=== PATIENT | male | born 1985 | race Caucasian/White ===

== ENCOUNTER 2019-04-13 14:59 | Day surgery (SDC) | payer MEDICAID ==
[2019-04-13] MEDS ORDERED: Lidocaine 1% 30 ML SDV ONE (15:12)
[2019-04-13] MEDS ORDERED: Sodium Chloride 0.9% 1,000 ML IV ONE (15:15)
[2019-04-13] MEDS ORDERED: Ertapenem 1 GM in Sodium Chloride 0.9% 100 ML IV ONE (15:22)
--- NOTE | 2019-04-13 15:35 | PCM.PREANE ---
Preanesthetic Assessment - Procedure Proposed Procedure: lap appy - Anesthesia/Transfusion/Family Hx Anesthesia History: No Prior Anesthesia Family History of Anesthesia Reaction: No Transfusion History: No Prior Transfusion(s) - Review of Systems General: No Symptoms Pulmonary: No Symptoms Cardiovascular: No Symptoms Gastrointestinal: Abdominal Pain (pain last cori 6-7), Vomiting (last pm) Neurological: No Symptoms Other: Reports: None, Diabetes (pre in past- started losing weight) - Physical Assessment NPO Status Date: 04/12/19 NPO Status Time: 18:00 O2 Sat by Pulse Oximetry: 100 Respiratory Rate: 20 Vital Signs: Last Vital Signs Temp 96.6 F 04/13/19 15:17 Pulse 113 H 04/13/19 15:17 Resp 20 04/13/19 15:17 BP 158/92 H 04/13/19 15:17 Pulse Ox 100 04/13/19 15:17 Height: 5 ft 10 in Weight: 129.501 kg ASA Class: 2E Mental Status: Alert & Oriented x3 Airway Class: Mallampati = 1 Dentition: Reports: Normal Dentition Thyro-Mental Finger Breadths: 3 (black tongue) Mouth Opening Finger Breadths: 3 ROM/Head Extension: Full Lungs: Clear to Auscultation, Normal Respiratory Effort Cardiovascular: Regular Rate, Regular Rhythm - Imaging/EKG Impressions: had EKG a few months ago- he said everything was fine. - Allergies Allergies/Adverse Reactions: Allergies Allergy/AdvReac Type Severity Reaction Status Date / Time No Known Allergies Allergy Verified 04/13/19 15:09 - Blood Blood Available: No - Acknowledgements Anesthesia Type Planned: General Anesthesia Pt an Appropriate Candidate for the Planned Anesthesia: Yes Alternatives and Risks of Anesthesia Discussed w Pt/Guardian: Yes Pt/Guardian Understands and Agrees with Anesthesia Plan: Yes PreAnesthesia Questionnaire Cardiovascular History: Reports: Hypertension Respiratory History: Reports: None Gastrointestinal History: Reports: None Endocrine/Metabolic History: Reports: Obesity/BMI 30+ Oncologic (Cancer) History: Reports: None Dermatologic History: Reports: Other (See Below) (rosea on face) - History Comment History Comment: hydrochlorathiazide and lisinopril home meds - SUBSTANCE USE Smoking Status *Q: Never Smoker Tobacco Use Within Last Twelve Months: No Second Hand Smoke Exposure: No Days Per Week of Alcohol Use: 0 Recreational Drug Use History: No - HOME MEDS Home Medications: Home Meds Lisinopril 40 mg PO DAILY 04/13/19 [History] - CURRENT (IN HOUSE) MEDS Current Meds: Current Medications Ertapenem 1 gm/ Sodium (Chloride) 100 mls @ 200 mls/hr IV ONETIME ONE Stop: 04/13/19 15:51 Discontinued Medications Lidocaine HCl (Xylocaine-Mpf 1%) Confirm Administered Dose 30 ml .ROUTE .STK- MED ONE Stop: 04/13/19 15:13
[2019-04-13] MEDS ORDERED: Propofol 200 MG/20 ML SDV ONE (15:52)
[2019-04-13] MEDS ORDERED: Lidocaine 1% 4 ML ONE (15:52)
[2019-04-13] MEDS ORDERED: Ondansetron 4 MG/2 ML SDV ONE (15:52)
[2019-04-13] MEDS ORDERED: fentaNYL 250 MCG/5 ML SDV ONE (15:52)
[2019-04-13] MEDS ORDERED: Succinylcholine/Normal Saline 100 MG/5 ML Syringe ONE (15:52)
[2019-04-13] MEDS ORDERED: Rocuronium 50 MG/5 ML Vial ONE (15:52)
[2019-04-13] MEDS ORDERED: Midazolam 1 MG/ML 2 ML SDV ONE (15:52)
[2019-04-13] MEDS ORDERED: HYDROmorphone 0.5 MG/0.5 ML Syringe ONE (15:53)
[2019-04-13] MEDS ORDERED: Lactated Ringers 1,000 ML ONE ×2 (16:12→16:39)
[2019-04-13] MEDS ORDERED: Neostigmine Methylsulfate 1 MG/ML 5 ML Syringe ONE (16:23)
[2019-04-13] MEDS ORDERED: fentaNYL 100 MCG/2 ML SDV IVPUSH PRN (17:17)
[2019-04-13] MEDS ORDERED: Ondansetron 4 MG/2 ML SDV IVPUSH PRN (17:17)
[2019-04-13] MEDS ORDERED: HYDROmorphone 0.5 MG/0.5 ML Syringe IVPUSH PRN (17:17)
--- NOTE | 2019-04-13 17:18 | PCM.POSTAN ---
POST ANESTHESIA ASSESSMENT - MENTAL STATUS Mental Status: Alert, Oriented - VITAL SIGNS Pulse Rate: 94 SaO2: 94 Resp Rate: 18 Blood Pressure: 113/59 Temperature: 98.4 F - RESPIRATORY Respiratory Status: Respiratory Rate WNL, Airway Patent, O2 Saturation Stable - CARDIOVASCULAR CV Status: Pulse Rate WNL, Blood Pressure Stable - GASTROINTESTINAL GI Status: No Symptoms - PAIN Pain Score: 2 - POST OP HYDRATION Hydration Status: Adequate & Stable
--- NOTE | 2019-04-13 17:38 | PCM48HPAN ---
Post Anesthesia Note - EVALUATION WITHIN 48HRS OF ANESTHETIC Vital Signs in Normal Range: Yes Patient Participated in Evaluation: Yes Respiratory Function Stable: Yes Airway Patent: Yes Cardiovascular Function Stable: Yes Hydration Status Stable: Yes Pain Control Satisfactory: Yes Nausea and Vomiting Control Satisfactory: Yes Mental Status Recovered: Yes (rests- no complaints) Pulse Rate: 94 Resp Rate: 17 Temperature: 98.4 F Blood Pressure: 113/59
[2019-04-13] MEDS ORDERED: Ketorolac 30 MG/ML SDV IVPUSH SCH (17:45)
[2019-04-13] MEDS ORDERED: Haloperidol Lactate 5 MG/ML SDV IVPUSH PRN (18:25)
--- NOTE | 2019-04-14 07:11 | CONS ---
CONSULTING PHYSICIAN: Stephanie Cruz MD DATE OF CONSULTATION: 04/13/2019 CHIEF COMPLAINT: Right-sided lower abdominal pain. BRIEF HISTORY: The patient is a previously healthy 33-year-old male who for about 24 hours is feeling badly with some right-sided abdominal pain. He thought perhaps it was because one of his sons kind of jumped on him, but over the course of the next 12 hours, he started having some nausea and vomiting and some diarrhea. He states that the pain is localized there. He has never had this before. He was subsequently evaluated with his primary care and it was noted that he had elevated WBC at 17,100. His H and H was 15 and 44. Mild elevation of his BUN and but his CRP was elevated at 6.3. His glucose was also 160. CT scan was subsequently performed and I was able to review this and clearly he has acute appendicitis which appears to be retrocecal. PAST MEDICAL HISTORY: ALLERGIES: No known allergies. CURRENT MEDICATIONS: He is on anti-hypertensive medications which I believe is lisinopril and supposedly a diuretic which we are trying to find that. PAST SURGICAL HISTORY: No prior surgical procedures. SOCIAL HISTORY: Smoking negative. Alcohol negative. He is and he works at [employer]. He does not smoke and does not drink. He has 3 boys and 1 daughter, all alive and well. He is only child. REVIEW OF SYSTEMS: The patient denies any history of seizures. No blurred or double vision. He denies thyroid, diabetes or hepatitis. He denies shortness of breath or hot flashes in the night. He denies any flat hot flashes at all. He denies any palpitations or chest pain. No history of ulcers or kidney stones in the past. No history of diarrhea until what he had today. No history of DVT. No history of bruising. He denies any ankle swelling or edema. PHYSICAL EXAMINATION: NEUROLOGIC: GCS is 15. HEENT: Sclerae white. EYES: Pupils equal. NECK: Without mass. LUNGS: Clear. HEART: Rhythm is regular. ABDOMEN: Moderately obese with tenderness in the right lower quadrant. EXTREMITIES: Ankles are totally free of edema and I do not see any bruising. IMPRESSION AND PLAN: 1. Clearly, this patient has acute appendicitis and it appears to be retrocecal. I clearly discussed the risks and benefits to include, but not limited to bleeding, infection, heart attack, , injury to structures not intended and the need for even an open procedure. I explained that sometimes we even need to resect a portion of the colon. Depending on what we find in the operating room, we will determine how we are able to care for this problem. I explained to him that I do not think he is a candidate for nonoperative therapy. I offered him a second opinion and he declined. He has not eaten or drank anything since yesterday other than the contrast. Questions were answered and we are going to go ahead and proceed by giving him a gram of Invanz and going from there. 2. Hypertension. 3. Some mild dehydration, which we will correct here with some fluids. COLTON /[id number]
--- NOTE | 2019-04-14 07:14 | OR ---
DATE OF OPERATION: 04/13/2019 SURGEON: Stephanie Cruz MD PREOPERATIVE DIAGNOSIS: Acute retrocecal appendicitis. POSTOPERATIVE DIAGNOSIS: Acute retrocecal appendicitis. OPERATION PERFORMED: Laparoscopic appendectomy. ANESTHESIA: IV sedation with 1% lidocaine injected into the opening. ESTIMATED BLOOD LOSS: Less than 10 mL. BRIEF HISTORY: A fairly healthy, 33-year-old male with all the signs and symptoms and CT scan proven acute appendicitis. DESCRIPTION OF PROCEDURE: After informed consent, the patient was taken to the operating room. IV sedation was begun and he was intubated. Time-out was performed. The abdomen was prepped and draped in the usual fashion. We waited 3 minutes for the prep to dry. At this point in time, 1% lidocaine was instilled in infraumbilical area. A small transverse incision was made. I dissected down to the fascia. I made a porter in the fascia and grasped it between 2 sterile hemostats and advanced the Veress needle without difficulty. CO2 was insufflated. At that point, I removed the Veress needle and advanced the 5 mm port, and the camera confirmed good intraperitoneal positioning. A 5 was advanced under direct vision in the right upper quadrant and a suprapubic 12. At this point, we could easily see he had acute appendicitis. I was quite pleased that even though it went retrocecal, I was able to flip it into the intraperitoneal cavity. I made a small window at the base of the appendix and was able to place a stapling device and fire it. I took down the mesoappendiceal vessels using multiple hemoclips. I then placed the appendix in an Endobag and brought it through the lower incision. I then re-placed the scope, irrigated to remove the small amount of blood and to inspect the site, and everything looked good. The 12 and the 5 were removed under direct vision. No bleeding was noted. The camera was removed. I took time to close the suprapubic 12 using 0 Vicryl. This took 2 [id number] for my satisfaction to close that fascial defect. For the infraumbilical, I used a single 0 Vicryl. Subcuticular closure was done with 4-0 Vicryl. Benzoin and Steri-Strips applied. The patient tolerated the procedure well. INSTRUCTIONS TO THE PATIENT: He will be allowed to go home. He should be off work for 1 week and follow up in the office next Friday, sooner if there are any problems. COLTON /[id number]
== END 2019-04-13 21:53 | disposition home or self-care (01) ==
LOC: JD.ED 14:59 → JD.SDS 15:48 → JD.MS 20:09 → JD.SDS 21:53
PROVIDERS: ATTEND Surgery
DX: K35.30 Acute appendicitis with localized peritonitis, without perforation or gangrene (principal); I10 Essential (primary) hypertension; I70.1 Atherosclerosis of renal artery; I87.2 Venous insufficiency (chronic) (peripheral); E66.9 Obesity, unspecified; Z68.41 Body mass index [BMI] 40.0-44.9, adult; Z79.899 Other long term (current) drug therapy
CPT/HCPCS: 44970; 96374; 99284; J0330; J1170; J1335; J1630; J1885; J2001; J2250; J2405; J2704; J2710; J3010; J7030; J7040; J7120; 00840